=== PATIENT | male | born 1990 | race Caucasian/White ===

== ENCOUNTER 2016-08-20 15:35 | Inpatient (IN) | payer OTHER ==
[~2016-08-20] VITALS: Ht 177.8 cm; Wt 74.6 kg
--- NOTE | ~2016-08-20 | PR ---
[place], [place] PROGRESS NOTE NAME: [id number] UNIT #: [id number] ROOM: 526 DOCTOR: HANK GARCIA,JOCELYN BIRTHDATE: [birth year] DOS: 08/22/2016 REASON FOR VISIT: Sinus bradycardia, chest pain. This note is an addendum to the progress note done by . I personally examined this with the patient. Rhythm strips and labs reviewed. PHYSICAL EXAMINATION: NECK: Supple. LUNGS: Clear anteriorly. HEART: Regular rhythm. ABDOMEN: Showed no edema. IMPRESSION: 1. Chest pain, atypical, myocardial infarction ruled out. 2. Sinus bradycardia, asymptomatic. 3. Tobacco use. RECOMMENDATIONS: 1. We will check 2D echo. If the 2D echo is unremarkable, he can be discharged home today. 2. The patient counseled to quit smoking. 3. Continue to watch his sinus bradycardia as outpatient and currently he is asymptomatic. Cardiology will sign off and will see him as outpatient. JOCELYN MCKINNEY MD CM:PNTRANS [id number] JOCELYN MCKINNEY MD 08/23/16 0401 interface
[~2016-08-20 15:35] MED LIST: ACETAMINOPHEN-H1 TA2 PO; ATIVAN0.5 MG PO; AUGMENTIN 875 M1 TAB PO; BACTRIM DS 8001 TAB PO; CLARITIN10 MG PO; KEFLEX500 M1 PO; KEFLEX500 MG PO; MOTRIN800 MG PO; SEPTRA DS 800 M1 TAB PO; TRAMADOL HCL50 MG PO; VANCO 1.251.25 GM/25 IV; VICODIN 500 MG-1 TAB PO
[2016-08-20 15:53] VITALS: BP 153/104
[2016-08-20 16:06] LABS: BASO % 0.4 % (0.0-1.0); EOS # 0.1 10*3/uL (0.0-0.4); EOS % 1.9 % (1.0-4.0); HEMATOCRIT 50.4 % (42.0-52.0); HEMOGLOBIN 16.7 g/dl (14.0-18.0); MEAN CELL VOLUME 92.3 fl (80.0-94.0); MEAN CORPUSCULAR HGB 30.6 pg (27.0-31.0); MEAN CORPUSCULAR HGB CONC 33.1 g/dl (33.0-37.0); MEAN PLATELET VOLUME 9.9 fl (9.6-12.3); MONO # 0.6 10*3/uL (0.1-1.0); MONO % 8.3 % (3.0-9.0); NEUT # 4.8 10*3/uL (2.3-7.9); NEUT % 63.1 % (47.0-73.0); PLATELET COUNT AUTOMATED 271 10*3/uL (130-400); RED BLOOD COUNT 5.46 10*6/uL (4.50-5.90); WHITE BLOOD COUNT 7.5 10*3/uL (4.8-10.8)
[2016-08-20 16:16] LABS: PROTHROMBIN TIME 10.6 SECONDS (9.0-12.4)
[2016-08-20 16:20] VITALS: BP 140/85
[2016-08-20 16:22] LABS: ALBUMIN 4.4 gm/dl (3.1-4.5); ALKALINE PHOSPHATASE 105 U/L (45-117); BILIRUBIN, TOTAL 0.3 mg/dl (0.2-1.0); BUN 11 mg/dl (7-24); CARBON DIOXIDE 25 mmol/L (21-32); CHLORIDE 107 mmol/L (98-107); EST GLOM FILT AFRICAN AMERICAN > 60 ml/min; GLUCOSE 91 mg/dL (65-99); SGOT/AST 19 IU/L (3-35); SGPT/ALT 23 U/L (12-78); SODIUM 140 mmol/L (136-145); TOTAL PROTEIN 8.2 gm/dL (6.4-8.2)
[2016-08-20 16:24] LABS: TROPONIN I < 0.015 ng/ml (<0.045)
[2016-08-20 16:38] LABS: URINE AMPHETAMINES < 1000 (1000ng/ml); URINE BARBITURATES < 200 (200ng/ml); URINE COCAINE < 300 (300ng/ml)
[2016-08-20 20:00] VITALS: BP 98/58
[2016-08-21] VITALS (7 sets, daily range): BP systolic 113–126; BP diastolic 45–67
[2016-08-22] VITALS: BP 103/44
[2016-08-22 06:15] LABS: BASO % 0.3 % (0.0-1.0); EOS # 0.2 10*3/uL (0.0-0.4); EOS % 2.8 % (1.0-4.0); HEMATOCRIT 49.8 % (42.0-52.0); HEMOGLOBIN 16.3 g/dl (14.0-18.0); LYMPH # 1.9 10*3/uL (1.3-4.4); LYMPH % 33.2 % (27.0-41.0); MEAN CELL VOLUME 93.4 fl (80.0-94.0); MEAN CORPUSCULAR HGB 30.6 pg (27.0-31.0); MEAN CORPUSCULAR HGB CONC 32.7 g/dl (33.0-37.0); MEAN PLATELET VOLUME 10.1 fl (9.6-12.3); MONO # 0.5 10*3/uL (0.1-1.0); MONO % 8.3 % (3.0-9.0); NEUT # 3.2 10*3/uL (2.3-7.9); NEUT % 55.2 % (47.0-73.0); PLATELET COUNT AUTOMATED 240 10*3/uL (130-400); RED BLOOD COUNT 5.33 10*6/uL (4.50-5.90); RED CELL DISTRI WIDTH 13.7 % (0-14.5); WHITE BLOOD COUNT 5.8 10*3/uL (4.8-10.8)
[2016-08-22 06:40] LABS: BUN 14 mg/dl (7-24); CARBON DIOXIDE 29 mmol/L (21-32); CHLORIDE 105 mmol/L (98-107); EST GLOM FILT AFRICAN AMERICAN > 60 ml/min; GLUCOSE 93 mg/dL (65-99); POTASSIUM 3.7 mmol/L (3.5-5.1); SODIUM 139 mmol/L (136-145)
[2016-08-22 08:00] VITALS: BP 107/71
[2016-08-22 16:00] VITALS: BP 124/77
== END 2016-08-22 18:06 | disposition home or self-care (01) | DRG 206 ==
LOC: ED 15:35 → EDHOLD 16:34 → ICCU 16:34 → 4E 17:06 → ICCU 08-21 02:13 → 5E 08-21 16:00
PROVIDERS: Internal Medicine Hospice and Palliative Medicine; Student in an Organized Health Care Education/Training Program
DX: M94.0 Chondrocostal junction syndrome [Tietze] (principal); R00.1 Bradycardia, unspecified; I16.1 Hypertensive emergency; F14.10 Cocaine abuse, uncomplicated; F17.200 Nicotine dependence, unspecified, uncomplicated; Z71.6 Tobacco abuse counseling; Z83.3 Family history of diabetes mellitus; Z82.49 Family history of ischemic heart disease and other diseases of the circulatory system; Z88.6 Allergy status to analgesic agent

== ENCOUNTER 2019-09-27 06:22 | Emergency (ER) | payer OTHER, MEDICAID ==
[~2019-09-27] VITALS: Ht 177.8 cm; Wt 74.8 kg
[2019-09-27 06:55] LABS: BASO % 0.5 % (0.0-1.0); EOS # 0.3 10*3/uL (0.0-0.4); EOS % 3.3 % (1.0-4.0); HEMATOCRIT 49.4 % (42.0-52.0); LYMPH # 2.6 10*3/uL (1.3-4.4); LYMPH % 29.3 % (27.0-41.0); MEAN CELL VOLUME 96.1 fl (80.0-94.0); MEAN CORPUSCULAR HGB 32.3 pg (27.0-31.0); MEAN CORPUSCULAR HGB CONC 33.6 g/dl (33.0-37.0); MEAN PLATELET VOLUME 9.1 fl (9.6-12.3); MONO # 0.5 10*3/uL (0.1-1.0); MONO % 5.6 % (3.0-9.0); NEUT # 5.3 10*3/uL (2.3-7.9); NEUT % 60.8 % (47.0-73.0); PLATELET COUNT AUTOMATED 297 10*3/uL (130-400); RED BLOOD COUNT 5.14 10*6/uL (4.50-5.90); RED CELL DISTRI WIDTH 12.9 % (0-14.5); WHITE BLOOD COUNT 8.7 10*3/uL (4.8-10.8)
[2019-09-27 07:11] LABS: ALBUMIN 4.5 gm/dl (3.1-4.5); ALKALINE PHOSPHATASE 105 U/L (45-117); BUN 9 mg/dl (7-24); CHLORIDE 110 mmol/L (98-107); CREATININE 0.82 mg/dL (0.70-1.30); POTASSIUM 4.1 mmol/L (3.5-5.1); SGOT/AST 35 IU/L (3-35); SGPT/ALT 50 U/L (12-78); SODIUM 142 mmol/L (136-145); TOTAL PROTEIN 8.6 gm/dL (6.4-8.2)
== END 2019-09-27 07:15 | disposition left against medical advice (07) ==
LOC: ED 06:22
PROVIDERS: Emergency Medicine Emergency Medical Services
DX: F10.129 Alcohol abuse with intoxication, unspecified (principal); F32.9 Major depressive disorder, single episode, unspecified; F17.200 Nicotine dependence, unspecified, uncomplicated; Z88.8 Allergy status to other drugs, medicaments and biological substances; Y90.7 Blood alcohol level of 200-239 mg/100 ml

== ENCOUNTER 2020-04-12 19:18 | Emergency (ER) | payer OTHER ==
[~2020-04-12] VITALS: Ht 180.3 cm; Wt 74.8 kg
== END 2020-04-12 21:12 | disposition home or self-care (01) ==
LOC: ED 19:18
DX: F11.10 Opioid abuse, uncomplicated (principal); F17.200 Nicotine dependence, unspecified, uncomplicated; Z88.6 Allergy status to analgesic agent

== ENCOUNTER → 2020-08-08 | Outpatient (CLI) | payer OTHER | END | disposition home or self-care (01) | LOC: COVID19 13:12 | DX: J40 Bronchitis, not specified as acute or chronic (principal); Z20.822 Contact with and (suspected) exposure to COVID-19 ==